=== PATIENT | female | born 1950 | race Caucasian/White ===

== ENCOUNTER 2020-06-18 09:52 | Outpatient (REF) | payer MEDICARE, SELFPAY ==
[2020-06-18 12:18] LABS: Alanine Aminotransferase 13 U/L (0-31); Albumin Level 4.5 g/dL (3.5-5.0); Alkaline Phosphatase 94 U/L (39-117); Anion Gap 13 (12-20); Aspartate Amino Transferase 13 U/L (5-31); Bilirubin Total 0.5 mg/dL (0.0-1.0); Blood Urea Nitrogen 17 mg/dL (9-16); Calcium 9.3 mg/dL (8.4-10.2); Carbon Dioxide 28 mmol/L (22-29); Chloride 105 mmol/L (96-108); Cholesterol 177 mg/dL; Estimated Glomerular Filt Rate > 60; Glucose Random 85 mg/dL (60-115); HDL Cholesterol 50 mg/dL; Iron 65 mcg/dL (30-160); Magnesium 2.1 mg/dL (1.6-2.6); Percent Iron Saturation 14 % (15-50); Potassium 4.7 mmol/l (3.3-5.1); Sodium 141 mmol/L (135-145); Total Iron Binding Capacity 468 mcg/dL (228-428); Total Protein 7.1 g/dL (6.5-8.0); Unsaturated Iron Binding 403 ug/dL
[2020-06-18 12:26] LABS: Ferritin 6 ng/mL (10-250); TSH reflex Free T4 0.54 mIU/mL (0.32-4.0)
[2020-06-18 12:40] LABS: Vitamin B12 192 pg/mL (200-900)
[2020-06-19 18:51] LABS: LDL Cholesterol Direct 107 mg/dL (<100)
== END 2020-06-18 09:53 | disposition home or self-care (01) ==
LOC: HO.LAB 09:52
PROVIDERS: PCP Internal Medicine; Visit Provider Internal Medicine
DX: Z00.00 Encounter for general adult medical examination without abnormal findings (principal); E78.00 Pure hypercholesterolemia, unspecified; I10 Essential (primary) hypertension; E03.9 Hypothyroidism, unspecified; F17.200 Nicotine dependence, unspecified, uncomplicated
CPT/HCPCS: 80053; 82465; 82607; 82728; 83540; 83718; 83721; 83735; 84443

== ENCOUNTER → 2020-07-25 08:46 | Outpatient (BNVA) | payer MEDICARE, SELFPAY | PROVIDERS: PCP Internal Medicine; Referring Provider Internal Medicine; Visit Provider Student in an Organized Health Care Education/Training Program | DX: M05.9 Rheumatoid arthritis with rheumatoid factor, unspecified (principal); R79.89 Other specified abnormal findings of blood chemistry; M81.0 Age-related osteoporosis without current pathological fracture; D64.9 Anemia, unspecified; Z85.038 Personal history of other malignant neoplasm of large intestine; Z79.899 Other long term (current) drug therapy | CPT/HCPCS: 99212 ==

== ENCOUNTER 2020-08-11 09:50 | Outpatient (REF) | payer MEDICARE, SELFPAY ==
[2020-08-11 10:29] LABS: MANUAL DIFF FLAG NO
[2020-08-11 10:36] LABS: Basophils Absolute Auto 0.1 X10*3/uL (0.0-0.2); Basophils Percent Auto 1.1 % (0-2); Eosinophils Absolute Auto 0.3 X10*3/uL (0.0-0.4); Eosinophils Percent Auto 2.9 % (0-4); Hematocrit 39.1 % (37-47); Hemoglobin 12.3 g/dl (12.0-16.0); Imm Gran Abs Auto 0.04 X10*3/uL (0.00-0.03); Imm Gran Pct Auto 0.4 % (0.0-0.4); Lymphocytes Percent Auto 21.5 % (20-40); Mean Corpuscular HGB Conc 31.5 g/dl (31.0-35.0); Mean Corpuscular Volume 85.7 fL (80-98); Mean Platelet Volume 10.2 fL (9.4-12.3); Monocytes Absolute Auto 0.7 X10*3/uL (0.1-1.2); Monocytes Percent Auto 7.3 % (2-11); Neutrophils Absolute Auto 6.3 X10*3/uL (2.0-8.3); Neutrophils Percent Auto 66.8 % (45-73); Platelet Count 352 X10*3/uL (160-400); Red Blood Count 4.56 X10*6/uL (4.20-5.50); Red Cell Distribution Width 14.6 % (11.0-16.0); White Blood Count 9.4 X10*3/uL (4.8-10.8)
[2020-08-11 10:54] LABS: Alanine Aminotransferase 15 U/L (0-31); Albumin Level 4.6 g/dL (3.5-5.0); Alkaline Phosphatase 95 U/L (39-117); Anion Gap 14 (12-20); Aspartate Amino Transferase 14 U/L (5-31); Bilirubin Total 0.3 mg/dL (0.0-1.0); Blood Urea Nitrogen 17 mg/dL (9-16); C Reactive Protein 0.28 mg/dL (< or = 0.50); Calcium 9.5 mg/dL (8.4-10.2); Carbon Dioxide 27 mmol/L (22-29); Chloride 106 mmol/L (96-108); Estimated Glomerular Filt Rate > 60; Glucose Random 95 mg/dL (60-115); Potassium 4.7 mmol/l (3.3-5.1); Sodium 142 mmol/L (135-145)
[2020-08-11 12:19] LABS: Erythrocyte Sedimentation Rate 15 MM/HR (0-20)
[2020-08-15 12:17] LABS: Vitamin D 25-OH, D2 <4 ng/mL; Vitamin D 25-OH, D3 55 ng/mL; Vitamin D 25-OH, Total 55 ng/mL (30-100)
== END 2020-08-11 09:51 | disposition home or self-care (01) ==
LOC: HO.LAB 09:50
PROVIDERS: PCP Internal Medicine; Visit Provider Student in an Organized Health Care Education/Training Program
DX: R79.89 Other specified abnormal findings of blood chemistry (principal)
CPT/HCPCS: 36415; 80053; 82306; 85025; 85652; 86140

== ENCOUNTER → 2020-11-27 08:53 | Outpatient (BNVA) | payer MEDICARE, SELFPAY | PROVIDERS: PCP Internal Medicine; Visit Provider Student in an Organized Health Care Education/Training Program | DX: R79.89 Other specified abnormal findings of blood chemistry (principal); M81.0 Age-related osteoporosis without current pathological fracture; D64.9 Anemia, unspecified; M54.9 Dorsalgia, unspecified; Z79.899 Other long term (current) drug therapy | CPT/HCPCS: 99212 ==

== ENCOUNTER → 2020-12-16 08:53 | Outpatient (BNVA) | payer MEDICARE, SELFPAY | PROVIDERS: PCP Internal Medicine; Visit Provider Student in an Organized Health Care Education/Training Program | DX: M81.0 Age-related osteoporosis without current pathological fracture (principal) | CPT/HCPCS: 96372; 96402; J0897 ==

== ENCOUNTER 2021-01-02 08:00 | Outpatient (RCR) | payer MEDICARE, SELFPAY ==
[2020-12-25 09:01] VITALS: BP 154/74
--- NOTE | 2020-12-25 09:53 | MHC.PT.EP ---
[facility] [place] Office [place] Office [place] Office [address] Rafael Barnett [address] [phone] F: [phone] F: [phone] F: [phone] F: [phone] Physical Therapy Plan of Care Date of Evaluation: Date of Surgery: NA Diagnosis: Thoracic and lumbar spine Assessment: 70 year old female referred for thoracic and lumbar spine pain . Pt reports of having pain in back for about a year. She denies any trauma or falls. Examination reveals 8/10 pain across upper back at T 10 level with flexion activities like gardening and house hold chores, 0/10 pain at rest, decreased trunk ROM, decreased scap muscles strength, and altered posture. She would benefit from therapy to address the aforementioned impairments to improve tolerance to activities and return to PLOF. Pt is not motivated to come to therapy. She was recommended 2/week however she stated that she would only come once a week. Frequency and Duration: The patient will be seen 2/week for 4 weeks Short Term Goals: 1. Pt will have 50% decrease in pain to enable her to perform self care activities in 2 weeks. 2. Pt will have all trunk range of motions withing normal limits which will enable her to garden in 3 weeks. Olive Packer Goals: 1. Pt will be independent with all HEPS for symptom management and maintenance following d/c in 4 weeks. 2. Pt will demonstrate an increase in muscle strength by 1 grade so as to enable her to lift without pain in 4 weeks. Treatment Plan: Modalities to reduce pain, spasms and effusion. Manual therapy to restore motion and function. Therapeutic exercise to improve strength and flexibility. Neuromuscular re-education for posture and balance. Therapeutic activities to return to functional activities of daily living. Electronically signed by: Elinor Tan, PT, DPT Please sign and return to therapist. Thank you for your referral.
--- NOTE | 2021-01-05 15:44 | MHC.PT.DC ---
[facility] [place] Office [place] Office [place] Office [address] Rafael Barnett [address] [phone] F: [phone] F: [phone] F: [phone] F: [phone] Physical Therapy Discharge Report Diagnosis: Thoracic and lumbar spine Date of Surgery: NA Date of Evaluation: 12/25/20 Date of Discharge: 01/05/21 Treatments to Date: 2 Cancellations to Date: 0 No Shows to Date: 0 Discharge Status: Patient Elected to Stop Discharge Summary: Pt requested d/c from therapy. She stated that the she had too many things going on and she did not have time for therapy. Electronically signed by: Elinor Tan, PT, DPT Please sign and return to therapist. Thank you for your referral.
== END 2021-05-12 09:46 | disposition home or self-care (01) ==
LOC: HO.PT 08:00
PROVIDERS: Visit Provider Student in an Organized Health Care Education/Training Program
DX: M54.9 Dorsalgia, unspecified (principal)
CPT/HCPCS: 97110; 97112; 97161

== ENCOUNTER 2021-01-25 00:33 | Emergency (ER) | payer MEDICARE, SELFPAY ==
--- NOTE | ~2021-01-25 | CT_ITS ---
EXAMINATION: CT SOFT TISSUE NECK WITH CONTRAST CLINICAL INFORMATION: Difficulty swallowing pain in pharynx. COMPARISON: None. TECHNIQUE: Following the intravenous administration of 60 mL of Omnipaque 350 intravenous contrast, helical imaging was performed in the axial plane with generation of coronal and sagittal reformatted images. This CT examination was performed using dose optimization techniques as appropriate, variously including the following: *Automated exposure control *Adjustment of mA and/or kV according to patient size (this includes techniques or standardized protocols for targeted exams where dose is matched to indication/reason for exam; i.e. extremities or head) *Use of iterative reconstruction technique DLP: 870 mGy-cm FINDINGS: There is thickening of the epiglottis, with mild thickening of the posterior aryepiglottic folds bilaterally. There is an area of soft tissue fullness with mild enhancement in the right aryepiglottic region posteriorly on the right which measures approximately 1.5 cm which has an area of central low density, and which may be consistent with an evolving abscess (image 71/150, series 2). There is mild distortion of the supraglottic airway. There is no cervical lymphadenopathy. There are small lymph nodes measuring up to 1.1 cm bilaterally in the level IIA/IIB regions. No cervical adenopathy is identified. The parotid glands are homogeneous in attenuation. The submandibular glands are normal. The laryngeal structures are normal. The parapharyngeal fat is preserved. There is good opacification of the vascular structures in the neck. No extra mucosal soft tissue mass or fluid collection is seen. The thyroid gland is normal. The superior mediastinum is unremarkable. The lung apices are clear. The mastoid air cells and visualized portions of the paranasal sinuses are well-aerated. There are mild degenerative changes of the bilateral temporomandibular joints. There are periapical and periodontal around multiple teeth in the bilateral mandible, more extensive on the left. Severe changes are noted in the right maxillary molar region. There are no acute osseous findings the visualized intracranial structures are unremarkable. CT/CT soft tissue neck w con IMPRESSION: 1. There is thickening of the epiglottis and aryepiglottic folds, consistent with epiglottitis. There is soft tissue fullness with central low attenuation in the right aryepiglottic region consistent with an evolving abscess. There is no cervical lymphadenopathy. 2. There is extensive periodontal and periapical disease in the bilateral mandible and right maxilla.
[2021-01-25 00:44] VITALS: BP 187/88; PULSE 106; RESP 16; TEMP 37.1; O2SAT 97; BMI 28.3
[2021-01-25 04:00] VITALS: BP 199/86; PULSE 103; RESP 16; TEMP 36.9; O2SAT 99
[2021-01-25 04:17] LABS: MANUAL DIFF FLAG NO
[2021-01-25 04:18] LABS: Basophils Absolute Auto 0.1 X10*3/uL (0.0-0.2); Basophils Percent Auto 0.4 % (0-2); Eosinophils Percent Auto 0.2 % (0-4); Hematocrit 40.6 % (37-47); Hemoglobin 13.1 g/dl (12.0-16.0); Imm Gran Abs Auto 0.09 X10*3/uL (0.00-0.03); Imm Gran Pct Auto 0.5 % (0.0-0.4); Lymphocytes Absolute Auto 1.4 X10*3/uL (1.2-4.9); Lymphocytes Percent Auto 6.9 % (20-40); Mean Corpuscular HGB Conc 32.3 g/dl (31.0-35.0); Mean Corpuscular Hemoglobin 28.3 pg (27.0-33.0); Mean Corpuscular Volume 87.7 fL (80-98); Mean Platelet Volume 9.7 fL (9.4-12.3); Monocytes Absolute Auto 1.1 X10*3/uL (0.1-1.2); Monocytes Percent Auto 5.3 % (2-11); Neutrophils Absolute Auto 17.4 X10*3/uL (2.0-8.3); Neutrophils Percent Auto 86.7 % (45-73); Platelet Count 319 X10*3/uL (160-400); Red Blood Count 4.63 X10*6/uL (4.20-5.50); Red Cell Distribution Width 13.6 % (11.0-16.0)
[2021-01-25 04:49] LABS: Glucose Urine UA NEG (NEG); Leukocyte Esterase Urine NEG (NEG); Nitrite Urine NEG (NEG); PH 5.5 (5.0-8.0); Specific Gravity - Urine >= 1.030 (1.005-1.025); Urine Blood NEG (NEG); Urine Ketones NEG (NEG); Urine Protein NEG (NEG-TRACE)
[2021-01-25 04:51] LABS: Appearance Urine CLEAR; Color Urine YELLOW
[2021-01-25 04:54] VITALS: BP 179/86; PULSE 108; RESP 16; TEMP 37.3; O2SAT 97
[2021-01-25 04:54] LABS: Alanine Aminotransferase 14 U/L (0-31); Albumin Level 4.6 g/dL (3.5-5.0); Alkaline Phosphatase 87 U/L (39-117); Anion Gap 13 (12-20); Aspartate Amino Transferase 11 U/L (5-31); Bilirubin Direct 0.2 mg/dL (0.0-0.5); Bilirubin Total 0.5 mg/dL (0.0-1.0); Blood Urea Nitrogen 17 mg/dL (9-16); Calcium 8.9 mg/dL (8.4-10.2); Carbon Dioxide 24 mmol/L (22-29); Chloride 110 mmol/L (96-108); Creatinine Clr Calc Pharmacy 63.7; Estimated Glomerular Filt Rate > 60; Glucose Random 121 mg/dL (60-115); Potassium 4.3 mmol/L (3.3-5.1); Sodium 143 mmol/L (135-145); Total Protein 7.1 g/dL (6.5-8.0)
--- NOTE | 2021-01-25 05:43 | ED.GENADULT ---
HPI - General Adult General Chief complaint: General Medical Stated complaint: allergic reaction, Time Seen by Provider: 01/25/21 05:42 Source: patient Mode of arrival: ambulatory History of Present Illness HPI narrative: 70-year-old female who presents with increasing sensation of a ?golf ball? especially on the right side under her jaw and noticed changes in her voice this morning that have progressively worsened over the past 3 days. Patient states she is able to swallow without difficulty but has a sensation like she is working to breathe. She denies any associated fevers, chills, dental pain but does have underlying thyroid condition. Patient also is known to use lisinopril for blood pressure control. Her last use of lisinopril was 01/24 and she takes it every morning at 7:00 a.m.. Related Data Home Medications Medication Instructions Recorded Confirmed amlodipine 10 mg tablet 10 mg PO DAILY 07/25/20 07/25/20 cholecalciferol (vitamin D3) 25 25 mcg PO DAILY 07/25/20 07/25/20 mcg (1,000 unit) capsule levothyroxine 88 mcg tablet 88 mcg PO DAILY 07/25/20 07/25/20 lisinopril 20 mg tablet 20 mg PO DAILY 07/25/20 07/25/20 omeprazole magnesium 20 mg 20 mg PO DAILY 07/25/20 07/25/20 tablet,delayed release simvastatin 20 mg tablet 20 mg PO DAILY 07/25/20 07/25/20 Previous Rx's Medication Instructions Recorded ferrous sulfate 325 mg (65 mg 325 mg PO DAILY #30 tab 11/07/20 iron) tablet,delayed release denosumab 60 mg/mL subcutaneous 60 mg SUBCUT [id number] #1 ml 11/27/20 syringe 8 HR PAIN RELIEF 650MG TAB See Rx Instructions .ROUTE 01/23/21 .COMPLEX #90 tab Allergies Allergy/AdvReac Type Severity Reaction Status Date / Time No Known Allergies Allergy Verified 01/25/21 00:51 Review of Systems Review of Systems: Pertinent positives and negatives as stated in HPI 10 point review of systems is otherwise negative. [facility] Past Medical History Source: nursing notes reviewed Medical History Anemia Cyclic citrullinated peptide (CCP) antibody positive H/O colon cancer, stage II Hypertension Osteoporosis Rheumatoid arthritis Social History Social History Alcohol intake: never Smoking Status: Current every day smoker Cigarettes Per Day: 15 Advance Directives: No Advance Directives Information Provided: No Physical Exam Vital Signs: Vital Signs: Last Vital Signs Temp 99.1 F 01/25/21 04:54 Pulse 108 H 01/25/21 04:54 Resp 16 01/25/21 04:54 BP 179/86 H 01/25/21 04:54 Pulse Ox 97 01/25/21 04:54 Body Mass Index 28.3 VITAL SIGNS: Reviewed. GENERAL: Well developed, well nourished, in no acute distress. HEAD: Normocephalic/atraumatic EYES: PERRLA, EOMI OROPHARYNX: no oral lesions noted, posterior pharynx clear, no tongue/lip swelling, no evidence dental caries or swelling in the floor of the mouth LUNGS: Normal breath sounds, but mild inspiratory stridor is noted, no tachypnea. SpO2<97> CARDIOVASCULAR: Regular rate and rhythm without noted murmurs ABDOMEN: Soft, non-tender, non-distended with bowel sounds. Course Course Course Narrative: This is a 70-year-old female with history and clinical presentation somewhat concerning for allergic reaction and concerns of stridor without evidence of Jerrod's. Will treat empirically with Benadryl, Pepcid, Solu-Medrol and obtain CT scan of neck. Patient's airway is currently stable and will re-evaluate frequently. On review of all investigations patient is noted to have a significant leukocytosis and final CT readings consistent with epiglottitis. All results and findings were discussed with the patient at bedside and the importance of IV antibiotics as well as transfer to a tertiary center were impressed upon the patient. She acknowledges understanding and [facility] will be contacted for transfer. Patient is accepted as a transfer under the care of Dr. Emery. Reevaluation(s) Reevaluation #1: Discussed case with Dr. hernandez at [facility] who will accept the patient on transfer to their facility. Awaiting to hear from hospitalist regarding bed placement. Time: 09:15 Medical Decision Making Lab Data Result diagrams: 01/25/21 04:12 01/25/21 04:12 Labs: Lab Results 01/25/21 01/25/21 01/25/21 Range/Units 04:12 04:12 04:12 WBC 20.0 H (4.8-10.8) X10*3/uL RBC 4.63 (4.20-5.50) X10*6/uL Hgb 13.1 (12.0-16.0) g/dl Hct 40.6 (37-47) % MCV 87.7 (80-98) fL MCH 28.3 (27.0-33.0) pg MCHC 32.3 (31.0-35.0) g/dl RDW 13.6 (11.0-16.0) % Plt Count 319 (160-400) X10*3/uL MPV 9.7 (9.4-12.3) fL Immature Gran % (Auto) 0.5 H (0.0-0.4) % Neut % (Auto) 86.7 H (45-73) % Lymph % (Auto) 6.9 L (20-40) % [place] % (Auto) 5.3 (2-11) % Eos % (Auto) 0.2 (0-4) % Baso % (Auto) 0.4 (0-2) % Lymph # (Auto) 1.4 (1.2-4.9) X10*3/uL [place] # (Auto) 1.1 (0.1-1.2) X10*3/uL Eos # (Auto) 0.0 (0.0-0.4) X10*3/uL Baso # (Auto) 0.1 (0.0-0.2) X10*3/uL Abs Immat Gran (auto) 0.09 H (0.00-0.03) X10*3/uL Absolute Neuts (auto) 17.4 H (2.0-8.3) X10*3/uL Absolute Nucleated RBC 0.000 (0.0-0.012) X10*3/uL Nucleated RBC % (auto) 0.0 (0.0-0.2) /100WBC Hold Blue Top SEE NOTE Sodium 143 (135-145) mmol/L Potassium 4.3 (3.3-5.1) mmol/L Chloride 110 H (96-108) mmol/L Carbon Dioxide 24 (22-29) mmol/L Anion Gap 13 (12-20) BUN 17 H (9-16) mg/dL Creatinine 0.82 (0.5-1.4) mg/dL Estim Creat Clear Calc 63.7 Estimated GFR > 60 Random Glucose 121 H (60-115) mg/dL Calcium 8.9 D (8.4-10.2) mg/dL Total Bilirubin 0.5 (0.0-1.0) mg/dL Direct Bilirubin 0.2 (0.0-0.5) mg/dL AST 11 (5-31) U/L ALT 14 (0-31) U/L Alkaline Phosphatase 87 (39-117) U/L Total Protein 7.1 (6.5-8.0) g/dL Albumin 4.6 (3.5-5.0) g/dL Urine Color Urine Appearance Urine pH (5.0-8.0) Ur Specific [place] (1.005-1.025) Urine Protein (NEG-TRACE) MG/DL Urine Glucose (UA) (NEG) MG/DL Urine Ketones (NEG) MG/DL Urine Blood (NEG) Urine Nitrite (NEG) Ur Leukocyte Esterase (NEG) 01/25/21 Range/Units 04:27 WBC (4.8-10.8) X10*3/uL RBC (4.20-5.50) X10*6/uL Hgb (12.0-16.0) g/dl Hct (37-47) % MCV (80-98) fL MCH (27.0-33.0) pg MCHC (31.0-35.0) g/dl RDW (11.0-16.0) % Plt Count (160-400) X10*3/uL MPV (9.4-12.3) fL Immature Gran % (Auto) (0.0-0.4) % Neut % (Auto) (45-73) % Lymph % (Auto) (20-40) % [place] % (Auto) (2-11) % Eos % (Auto) (0-4) % Baso % (Auto) (0-2) % Lymph # (Auto) (1.2-4.9) X10*3/uL [place] # (Auto) (0.1-1.2) X10*3/uL Eos # (Auto) (0.0-0.4) X10*3/uL Baso # (Auto) (0.0-0.2) X10*3/uL Abs Immat Gran (auto) (0.00-0.03) X10*3/uL Absolute Neuts (auto) (2.0-8.3) X10*3/uL Absolute Nucleated RBC (0.0-0.012) X10*3/uL Nucleated RBC % (auto) (0.0-0.2) /100WBC Hold Blue Top Sodium (135-145) mmol/L Potassium (3.3-5.1) mmol/L Chloride (96-108) mmol/L Carbon Dioxide (22-29) mmol/L Anion Gap (12-20) BUN (9-16) mg/dL Creatinine (0.5-1.4) mg/dL Estim Creat Clear Calc Estimated GFR Random Glucose (60-115) mg/dL Calcium (8.4-10.2) mg/dL Total Bilirubin (0.0-1.0) mg/dL Direct Bilirubin (0.0-0.5) mg/dL AST (5-31) U/L ALT (0-31) U/L Alkaline Phosphatase (39-117) U/L Total Protein (6.5-8.0) g/dL Albumin (3.5-5.0) g/dL Urine Color YELLOW Urine Appearance CLEAR Urine pH 5.5 (5.0-8.0) Ur Specific [place] >= 1.030 H (1.005-1.025) Urine Protein NEG (NEG-TRACE) MG/DL Urine Glucose (UA) NEG (NEG) MG/DL Urine Ketones NEG (NEG) MG/DL Urine Blood NEG (NEG) Urine Nitrite NEG (NEG) Ur Leukocyte Esterase NEG (NEG) Discharge Plan Discharge Clinical Impression: Acute epiglottitis Patient Disposition: Xfer [facility] Transfer Details: ICU services, ENT services Prescriptions: No Action ferrous sulfate 325 mg (65 mg iron) tablet,delayed release (DR/EC) 325 mg PO DAILY Qty: 30 RF: 5 8 HR PAIN RELIEF 650MG TAB See Rx Instructions .ROUTE .COMPLEX Qty: 90 RF: 3 Prolia 60 mg/mL syringe 60 mg subcut [id number] Qty: 1 RF: 1 levothyroxine 88 mcg tablet 88 mcg PO DAILY RF: 0 lisinopril 20 mg tablet 20 mg PO DAILY RF: 0 amlodipine 10 mg tablet 10 mg PO DAILY RF: 0 simvastatin 20 mg tablet 20 mg PO DAILY RF: 0 omeprazole magnesium [Prilosec OTC] 20 mg tablet,delayed release (DR/EC) 20 mg PO DAILY RF: 0 cholecalciferol (vitamin D3) 25 mcg (1,000 unit) capsule 25 mcg PO DAILY RF: 0
[2021-01-25] MEDS: diphenhydrAMINE HCL 50 MG/ML VIAL 25 MG IVPUSH (05:47)
[2021-01-25] MEDS: Famotidine/PF 20 MG/2 ML VIAL IVPUSH (05:49)
[2021-01-25] MEDS: methylPREDNISolone Sod Succ 125 MG/2 ML VIAL IVPUSH (05:53)
[2021-01-25] MEDS: iohexoL 350 MG/ML 100 ML INFUS..BTL 65 ML IV (06:30)
--- NOTE | 2021-01-25 09:04 | PC.NURSE ---
@0902 CALL PLACED TO [facility] PT TX LINE @ DR ULLOA REQUEST [facility]STAL ANSWERS, TAKES PT INFO, CALL BACK NUMBER AND ASKS TO SPEAK WITH DR ARTEMIO ULLOA TAKES OVER CALL RIGHT AWAY
[2021-01-25 09:28] VITALS: BP 153/72; PULSE 92; RESP 18; TEMP 37.2; O2SAT 95
--- NOTE | 2021-01-25 09:38 | PC.NURSE ---
IV placed and abx started. Pt awaiting MD to explain next steps in care.
[2021-01-25] MEDS: cefTRIAXone sodium 2 GM in 0.9 % Sodium Chloride 50 ML IV (09:39)
[2021-01-25 10:06] LABS: COVID-19 Test Negative (Negative)
--- NOTE | 2021-01-25 10:20 | PC.NURSE ---
@2785 RETURN CALL FROM [facility] PT TX LINE, ASKS TO SPEAK WITH DR ARTEMIO ULLOA TAKES OVER CALL. AFTER HANGING UP WITH [facility], DR ULLOA GIVES ACCEPTING MD OF DR SAEZ
[2021-01-25] MEDS: vancomycin HCL 1,500 MG in 0.9 % Sodium Chloride 500 ML 333.33 MG IV (10:48)
--- NOTE | 2021-01-25 11:15 | PC.NURSE ---
@11:11 AM CALL PLACED TO [facility] TX LINE TO FIND OUT IF BED ASSIGNMENT WAS AVAILABLE [facility]YSTAL ANSWERS, STATES THEY ARE WAITING FOR COVID RESULTS TO GIVE ASSIGNMENT. NEGATIVE COVID RESULT GIVEN TO [facility] ROJAS GIVES ROOM ASSIGNMENT [facility] [address] FLOOR BED 0068 RN TO RN SHOULD BE CALLED TO [phone] FAX FACESHEET TO [phone]
--- NOTE | 2021-01-25 11:51 | PC.NURSE ---
Report called to [facility] JUDITH Rosenbaum. Consent for transfer obtained for PT. Ambulance being booked at this time.
--- NOTE | 2021-01-25 11:52 | PC.NURSE ---
Pt is well informed of transfer plan. VSS. Sats 95% on room air. Breathing is even and unlabored at a rate of 17. No audible stridor noted. Pt is resting in bed with eyes closed.
== END 2021-01-25 12:35 | disposition short-term general hospital (02) ==
PROVIDERS: Emergency Provider Student in an Organized Health Care Education/Training Program; PCP Internal Medicine
DX: J05.10 Acute epiglottitis without obstruction (principal); F17.210 Nicotine dependence, cigarettes, uncomplicated; Z20.822 Contact with and (suspected) exposure to COVID-19; Z71.6 Tobacco abuse counseling; Z79.899 Other long term (current) drug therapy
CPT/HCPCS: 36415; 70491; 80053; 80076; 81003; 82248; 85025; 87635; 96361; 96365; 96375; 99285; J0696; J1200; J2930; J3370; Q9967

== ENCOUNTER 2021-02-16 09:52 | Outpatient (REF) | payer MEDICARE, SELFPAY ==
[2021-02-16 10:44] LABS: MANUAL DIFF FLAG NO
[2021-02-16 10:53] LABS: Basophils Absolute Auto 0.1 X10*3/uL (0.0-0.2); Basophils Percent Auto 0.9 % (0-2); Eosinophils Absolute Auto 0.2 X10*3/uL (0.0-0.4); Eosinophils Percent Auto 2.4 % (0-4); Hematocrit 39.8 % (37-47); Hemoglobin 12.5 g/dl (12.0-16.0); Imm Gran Abs Auto 0.04 X10*3/uL (0.00-0.03); Imm Gran Pct Auto 0.5 % (0.0-0.4); Lymphocytes Absolute Auto 2.1 X10*3/uL (1.2-4.9); Lymphocytes Percent Auto 25.6 % (20-40); Mean Corpuscular HGB Conc 31.4 g/dl (31.0-35.0); Mean Corpuscular Hemoglobin 27.8 pg (27.0-33.0); Mean Corpuscular Volume 88.4 fL (80-98); Mean Platelet Volume 10.2 fL (9.4-12.3); Monocytes Absolute Auto 0.6 X10*3/uL (0.1-1.2); Neutrophils Absolute Auto 5.2 X10*3/uL (2.0-8.3); Neutrophils Percent Auto 63.6 % (45-73); Platelet Count 323 X10*3/uL (160-400); Red Cell Distribution Width 13.8 % (11.0-16.0); White Blood Count 8.2 X10*3/uL (4.8-10.8)
[2021-02-16 11:08] LABS: Alanine Aminotransferase 17 U/L (0-31); Albumin Level 4.4 g/dL (3.5-5.0); Alkaline Phosphatase 73 U/L (39-117); Anion Gap 12 (12-20); Aspartate Amino Transferase 14 U/L (5-31); Bilirubin Total 0.5 mg/dL (0.0-1.0); Blood Urea Nitrogen 15 mg/dL (9-16); C Reactive Protein 0.24 mg/dL (< or = 0.50); Calcium 9.4 mg/dL (8.4-10.2); Carbon Dioxide 27 mmol/L (22-29); Chloride 109 mmol/L (96-108); Estimated Glomerular Filt Rate > 60; Glucose Random 93 mg/dL (60-115); Potassium 4.8 mmol/L (3.3-5.1); Sodium 143 mmol/L (135-145); Total Protein 6.8 g/dL (6.5-8.0)
== END 2021-02-16 09:53 | disposition home or self-care (01) ==
LOC: HO.LAB 09:52
PROVIDERS: PCP Internal Medicine; Visit Provider Student in an Organized Health Care Education/Training Program
DX: M81.0 Age-related osteoporosis without current pathological fracture (principal)
CPT/HCPCS: 36415; 80053; 85025; 86140

== ENCOUNTER → 2021-02-27 09:13 | Outpatient (BNVA) | payer MEDICARE, SELFPAY | PROVIDERS: PCP Internal Medicine; Visit Provider Student in an Organized Health Care Education/Training Program | DX: M81.0 Age-related osteoporosis without current pathological fracture (principal); R79.89 Other specified abnormal findings of blood chemistry | CPT/HCPCS: 99212 ==

== ENCOUNTER → 2021-06-26 08:49 | Outpatient (BNVA) | payer MEDICARE, SELFPAY | PROVIDERS: PCP Internal Medicine; Visit Provider Nurse Practitioner Family | DX: M81.0 Age-related osteoporosis without current pathological fracture (principal); R79.89 Other specified abnormal findings of blood chemistry; M54.9 Dorsalgia, unspecified; Z79.899 Other long term (current) drug therapy | CPT/HCPCS: 99212 ==

== ENCOUNTER 2021-07-07 09:17 | Outpatient (REF) | payer MEDICARE, SELFPAY ==
[2021-07-07 09:30] LABS: MANUAL DIFF FLAG NO
[2021-07-07 10:06] LABS: Basophils Absolute Auto 0.1 X10*3/uL (0.0-0.2); Basophils Percent Auto 0.8 % (0-2); Eosinophils Absolute Auto 0.3 X10*3/uL (0.0-0.4); Eosinophils Percent Auto 2.9 % (0-4); Hematocrit 39.9 % (37.0-47.0); Hemoglobin 12.8 g/dl (12.0-16.0); Imm Gran Abs Auto 0.02 X10*3/uL (0.00-0.03); Imm Gran Pct Auto 0.2 % (0.0-0.4); Lymphocytes Absolute Auto 2.2 X10*3/uL (1.2-4.9); Lymphocytes Percent Auto 24.3 % (20-40); Mean Corpuscular HGB Conc 32.1 g/dl (31.0-35.0); Mean Corpuscular Volume 87.3 fL (80.0-98.0); Mean Platelet Volume 10.2 fL (9.4-12.3); Monocytes Absolute Auto 0.6 X10*3/uL (0.1-1.2); Monocytes Percent Auto 6.9 % (2-11); Neutrophils Absolute Auto 5.87 x10*3/uL (2.0-8.3); Neutrophils Percent Auto 64.9 % (45-73); Platelet Count 311 X10*3/uL (160-400); Red Blood Count 4.57 X10*6/uL (4.20-5.50); Red Cell Distribution Width 13.6 % (11.0-16.0)
[2021-07-07 10:52] LABS: Erythrocyte Sedimentation Rate 10 MM/HR (0-20)
[2021-07-07 10:56] LABS: Alanine Aminotransferase 15 U/L (0-31); Albumin Level 4.5 g/dL (3.5-5.0); Alkaline Phosphatase 67 U/L (39-117); Anion Gap 11 (12-20); Aspartate Amino Transferase 14 U/L (5-31); Bilirubin Total 0.4 mg/dL (0.0-1.0); Blood Urea Nitrogen 15 mg/dL (9-16); Calcium 9.6 mg/dL (8.4-10.2); Carbon Dioxide 29 mmol/L (22-29); Chloride 107 mmol/L (96-108); Estimated Glomerular Filt Rate > 60; Glucose Random 92 mg/dL (60-115); Potassium 4.4 mmol/L (3.3-5.1); Sodium 143 mmol/L (135-145); Total Protein 6.8 g/dL (6.5-8.0)
== END 2021-07-07 09:18 | disposition home or self-care (01) ==
LOC: HO.LAB 09:17
PROVIDERS: PCP Internal Medicine; Visit Provider Nurse Practitioner Family
DX: M81.0 Age-related osteoporosis without current pathological fracture (principal); R79.89 Other specified abnormal findings of blood chemistry
CPT/HCPCS: 36415; 80053; 85025; 85652; 86140

== ENCOUNTER → 2021-10-22 08:40 | Outpatient (BNVA) | payer MEDICARE, SELFPAY | PROVIDERS: PCP Internal Medicine; Visit Provider Nurse Practitioner Family | DX: M81.0 Age-related osteoporosis without current pathological fracture (principal); R79.89 Other specified abnormal findings of blood chemistry | CPT/HCPCS: 99212 ==